=== PATIENT | female | born 1950 | race Caucasian/White ===

== ENCOUNTER 2017-09-07 18:48 | Inpatient (IN) | payer OTHER ==
[~2017-09-07] VITALS: Ht 167.6 cm; Wt 74.8 kg
[2017-09-07] MEDS ORDERED: HEPA0.5D3 SQ (19:07)
[2017-09-07] MEDS ORDERED: BUPR1FIL3 SL (19:07)
[2017-09-07] MEDS ORDERED: ONDA4TAB5 PO (19:07)
[2017-09-07] MEDS ORDERED: FLUO40CA8 PO (19:07)
[2017-09-07] MEDS ORDERED: ALPR1TAB2 PO (19:07)
--- NOTE | 2017-09-07 21:04 | NUR ---
Pt. admitted to GPS, under care of Dr. Cueva Belongs List completed
[2017-09-07 21:30] VITALS: BP 130/83
[2017-09-07] MEDS ORDERED: ACETAMINOPHEN 325 MG TABLET PO PRN (21:30)
[2017-09-07] MEDS ORDERED: MAGNESIUM HYDROXIDE 30 ML LIQUID UDC PO PRN (21:30)
--- NOTE | 2017-09-07 21:45 | NUR ---
ADMISSION NOTE: 66 Y.O. FEMALE BROUGHT TO MHU FROM ER VIA GURNEY ON A 5150 FOR DTS. ACCORDING TO THE HOLD, Pt WAS SEEN AT [facility] IN [place] DUE TO AN INTENTIONAL OVERDOSE ON 40 SEROQUEL WITH A PLAN TO KILL HERSELF. Pt REPORTS SHE CONTINUES TO HAVE THOUGHTS ABOUT WANTING TO BE AND STATES SHE DOES NOT HAVE ANY FAMILY OR FRIENDS FOR SUPPORT. SHE REPORTS HAVING A HISTORY OF 1 PRIOR SUICIDE ATTEMPT AND PSYCHIATRIC HOSPITALIZATION. DENIES CURRENT PLAN, BUT WAS TEARFUL STATING SHE IS ALONE FOR THE HOLIDAYS AND IS UNSURE WHEN SHE ELVIS ACCESS SUPPORT. PATIENT APPEARS TO REFLECT WHAT IS ON THE HOLD, RN CONCURS WITH HOLD. PATIENT RIGHTS HANDBOOK AND ADVISEMENT GIVEN. UPON FACE TO FACE EVALUATION, Pt IS A+Ox3 WITH FAIR INSIGHT INTO REASON FOR ADMISSION. DISHEVELED, UNKEMPT, AND MALODOROUS IN HOSPITAL GOWN AND PANTS, REFUSED SHOWER. Pt STATES SHE IS HERE, "BECAUSE I TOOK TOO MANY PILLS AND WANTED TO BE ". Pt STATES SHE FEELS HELPLESS AND HOPELESS, BUT DENIES BEING DEPRESSED, STATED, "I REALLY AM JUST OVER LIFE, AND I'M READY TO END IT". Pt STATES SHE HAS NO FAMILY, NO FRIENDS, AND HATES HER LIVING SITUATION (SHE RENTS A ROOM FROM AN ACQUAINTANCE). Pt ADMITTED TO AT LEAST 8 OTHER PSYCHIATRIC HOSPITALIZATIONS, AND AT LEAST 1 PRIOR SUICIDE ATTEMPT BY SLASHING HER WRISTS. Pt AGREES TO CONTRACT FOR SAFETY WHILE INSIDE THE HOSPITAL, BUT STATES SHE WILL TRY COMMIT SUICIDE AGAIN WITH A PLAN TO "TAKE THE REST OF MY MEDICATIONS" WHEN RELEASED. Pt STATES SHE "REGRETS THAT I LIVED". DENIES HI/AH/VH. Pt EXHIBITS SUPERFICIALLY BRIGHT AFFECT AND PRESSURED SPEECH, HAS POOR EYE CONTACT. Pt IS FIXATED ON AND PREOCCUPIED WITH HER XANAX AND SUBOXONE MEDICATIONS, ASKING CONSTANTLY WHEN SHE WILL BE GETTING THEM. Pt IS ANXIOUS AND SOMEWHAT RESTLESS, ATIVAN 0.5mg ADMINISTERED ORDERED WITH GOOD EFFECT. Pt IS COOPERATIVE WITH ADMISSION PROCESS AND STAFF DIRECTION. Pt EDUCATED ON UNIT RULES AND SAFETY, AND ORIENTED TO THE UNIT, Pt VERBALIZED UNDERSTANDING. DR VALENZUELA AND DR CASTORENA NOTIFIED OF ADMISSION, ORDERS RECEIVED. BELONGINGS INVENTORIED AND PLACED IN UNIT LOCKER. VS STABLE, MEDS RECONCILED.
[2017-09-07] MEDS: MAG HYDROX/AL HYDROX/SIMETH 30 ML LIQUID UDC PO PRN (21:51)
[2017-09-07] MEDS: LORAZEPAM 0.5 MG TABLET PO PRN (21:51)
[2017-09-07] MEDS ORDERED: MAG HYDROX/AL HYDROX/SIMETH 30 ML LIQUID UDC ONE (22:07)
[2017-09-07] MEDS ORDERED: LORAZEPAM 0.5 MG TABLET ONE (22:07)
[2017-09-07 23:18] LABS: *BILIRUBIN,URIN NEGATIVE (NEGATIVE); *BLOOD, URINE NEGATIVE (NEGATIVE); *COLOR,URINE STRAW (YELLOW); *KETONES,URINE NEGATIVE (NEGATIVE); *PROTEIN,URINE NEGATIVE (NEGATIVE); LEUKOCYTE ESTERASE ,URINE 2+ (NEGATIVE); NITRITE, URINE NEGATIVE (NEGATIVE); PH,URINE 7.5 (5.0-8.0); UGLUCOSE NEGATIVE (NEGATIVE)
[2017-09-07 23:19] LABS: *CLARITY,URINE HAZY (CLEAR)
[2017-09-08 00:44] LABS: RBC,URINE 0-3 /HPF (0-3)
[2017-09-08 00:45] LABS: BACTERIA,URINE FEW /HPF (NONE SEEN); WBC,URINE 20-50 /HPF (0-3)
[2017-09-08 00:47] LABS: SQUAMOUS EPITHELIAL CELL,UR FEW /HPF (NONE SEEN)
[2017-09-08] MEDS: LORAZEPAM 0.5 MG TABLET PO PRN ×3 (05:09→14:12)
[2017-09-08] MEDS ORDERED: LORAZEPAM 0.5 MG TABLET ONE (05:23)
[2017-09-08] MEDS: MAG HYDROX/AL HYDROX/SIMETH 30 ML LIQUID UDC PO PRN ×3 (05:25→21:29)
[2017-09-08] MEDS ORDERED: MAG HYDROX/AL HYDROX/SIMETH 30 ML LIQUID UDC ONE (05:41)
[2017-09-08 07:30] VITALS: BP 118/85
[2017-09-08 08:14] LABS: THYROID STIMULATING HORMONE 4.47 mIU/mL (0.358-3.740)
[2017-09-08] MEDS: NICOTINE 7 MG/24HR PATCH TD SCH (08:15)
[2017-09-08 08:17] LABS: BASOPHILS % (AUTO) 0.9 % (0.0-2.0); EOSINOPHILS # (AUTO) 0.2 K/uL (0.0-0.7); EOSINOPHILS % (AUTO) 3.5 % (0.0-7.0); HEMATOCRIT 39.7 % (31.2-41.9); HEMOGLOBIN 13.6 g/dL (10.9-14.3); LYMPHOCYTES # (AUTO) 1.3 K/uL (20.0-40.0); LYMPHOCYTES % (AUTO) 25.3 % (20.5-51.5); MEAN CORPUSCULAR HEMOGLOBIN 32.4 uug (24.7-32.8); MEAN CORPUSCULAR HGB CONC 34 g/dL (32.3-35.6); MEAN CORPUSCULAR VOLUME 94.9 fL (75.5-95.3); MONOCYTES # (AUTO) 0.4 K/uL (2.0-10.0); MONOCYTES % (AUTO) 8.4 % (0.0-11.0); NEUTROPHILS # (AUTO) 3.3 K/uL (1.8-8.9); NEUTROPHILS % (AUTO) 61.9 % (38.5-71.5); RED BLOOD CELL COUNT(AUTO) 4.19 MIL/uL (3.63-4.92); WHITE BLOOD COUNT (AUTO) 5.3 K/uL (3.8-11.8)
[2017-09-08 08:28] LABS: BILIRUBIN,TOTAL 0.3 mg/dL (0.2-1.0); CREATININE 0.9 mg/dL (0.6-1.3); PHOSPHOROUS 3.2 mg/dL (2.5-4.9); POTASSIUM 3.9 mmol/L (3.5-5.1)
[2017-09-08 09:00] LABS: PLATELET COUNT (AUTO) 277 K/uL (179-408)
[2017-09-08] MEDS ORDERED: INFLUENZA VACCINE 2017-2018 0.5 ML DISP.SYRIN IM ONE (09:00)
[2017-09-08] MEDS ORDERED: PNEUMOCOCCAL 23-VAL P-SAC VAC 0.5 ML VIAL IM ONE (09:00)
[2017-09-08] MEDS: FLUOXETINE HCL 20 MG CAPSULE PO SCH (11:46)
[2017-09-08] MEDS: QUETIAPINE FUMARATE 25 MG TABLET PO SCH ×2 (11:46→16:46)
--- NOTE | 2017-09-08 12:00 | NUR ---
Gps/Order Dispatcher Chief- Dr Avalos was in to see and talked to patient. Routine medications ordered, reviewed with patient. Immunizations ordered,administered.Patient verbalized feelings of being anxious, interacting fairly well with her roommate.Reviewed safety, encouraged to let staff know when needed assist.
--- NOTE | 2017-09-08 15:38 | NUR ---
Gps/Racing Secretary- Patient verbalized feelings of being upset, when informed Dr Avalos didnt order clonopin for her, she can have ativan 0.5 mg as ordered. Claimed she's not going to last with just ativan for her anxiety. Informed patient she had a routine seroquel ordered. She wants Dr Avalos to come back to write order for clonopin, claimed Dr Avalos told her, he will change order.Continue to monitor behavior
[2017-09-08 16:00] VITALS: BP 95/59
[2017-09-08] MEDS: SULFAMETH/TRIMETH 800/160 MG TABLET PO SCH (16:46)
--- NOTE | 2017-09-08 17:43 | NUR ---
Gps/Flanger- Informed patient she has bladder infection, and she is being started w/ bactrim tab.for 7 day, ,claimed she didnt realized she had bladder infection she denies burning in urinations.Adequate fluid intake,afebrile.
[2017-09-08] MEDS: CLONAZEPAM 0.5 MG TABLET PO PRN (18:07)
[2017-09-08 20:00] VITALS: BP 114/75
[2017-09-08] MEDS: LAMOTRIGINE 25 MG TABLET PO SCH (20:57)
[2017-09-08] MEDS: TEMAZEPAM 7.5 MG CAPSULE PO PRN (21:25)
[2017-09-09] MEDS: CLONAZEPAM 0.5 MG TABLET PO PRN ×4 (00:23→18:01)
[2017-09-09 07:30] VITALS: BP 116/68
[2017-09-09] MEDS: NICOTINE 7 MG/24HR PATCH TD SCH (08:44)
[2017-09-09] MEDS: FLUOXETINE HCL 20 MG CAPSULE PO SCH (08:44)
[2017-09-09] MEDS: SULFAMETH/TRIMETH 800/160 MG TABLET PO SCH ×2 (08:44→17:06)
--- NOTE | 2017-09-09 15:26 | NUR ---
PATIENT IS 66 Y/O FEMALE WHO PRESENT AND PLACED ON 72 HR HOLD DUE TO INTENTIONAL OVERDOSE AND SUICIDAL IDEATION ORAL INTAKE IS GOOD, EATING 100% OF MEALS ANTHROPOMETRY:CURRENT WEIGHT IS 165LB,BMI 26.6-OVERWEIGHT,PHYSICAL ASSESSMENT REPORT SUGGEST NO OVERT MALNUTRITION LABS:CHOLESTEROL-205(H),LDL-133(H) MEDICATION:LIPITOR, NO NUTRITION DIAGNOSIS AT THIS TIME MONITOR;WEIGHT,NEW LABS,ORAL INTAKE Addendum: 09/11/17 at [address] Amended: Links added.
[2017-09-09 16:36] VITALS: BP 102/68
[2017-09-09 20:10] VITALS: BP 116/68
[2017-09-09] MEDS: ATORVASTATIN 20 MG TABLET PO SCH (21:49)
[2017-09-09] MEDS: LAMOTRIGINE 25 MG TABLET PO SCH (21:49)
[2017-09-09] MEDS: TEMAZEPAM 7.5 MG CAPSULE PO PRN (21:53)
[2017-09-10] MEDS: CLONAZEPAM 0.5 MG TABLET PO PRN ×5 (00:19→17:03)
[2017-09-10 07:30] VITALS: BP 124/64
[2017-09-10] MEDS: NICOTINE 7 MG/24HR PATCH TD SCH (08:43)
[2017-09-10] MEDS: FLUOXETINE HCL 20 MG CAPSULE PO SCH (08:43)
[2017-09-10] MEDS: SULFAMETH/TRIMETH 800/160 MG TABLET PO SCH ×2 (08:43→17:03)
--- NOTE | 2017-09-10 10:32 | NUR ---
GPS: Nursing Notes: Missing Denture: Patient was sleeping when she waked up stated that her upper denture was missing, charge nurse and staff helped her to look for it, but they cannot find it, Paula GRIMM stated that she told her that it is her fault that she lost her denture, continue on the look out for her denture.
--- NOTE | 2017-09-10 12:11 | NUR ---
Initial DC Note: Patient currently resides in an apartment [address] [place] [address] [address], [place] [address] [[phone]] with her roommate and cat. Patient stated that she wants to go back home. SW will follow up with MD and patient to discuss most appropriate discharge plans. SW will form a safe and proper discharge.
[2017-09-10 16:56] VITALS: BP 102/66
[2017-09-10] MEDS: LAMOTRIGINE 25 MG TABLET PO SCH (17:03)
--- NOTE | 2017-09-10 17:23 | NUR ---
GPS: Nursing Notes: Missing Upper Denture: [employer] typing pool supervisor was also informed of the incident, patient is A/Ox4, self care, continue to monitor patient, continue with treatment plan.
[2017-09-10] MEDS: ONDANSETRON HCL 4 MG TABLET PO PRN (18:56)
[2017-09-10 20:00] VITALS: BP 114/80
[2017-09-10] MEDS: ATORVASTATIN 20 MG TABLET PO SCH (20:56)
--- NOTE | 2017-09-10 21:05 | NUR ---
PATIENT RECEIVED IN ACTIVITIES ROOM WATCHING T.V. INTERACTING WITH STAFF AND PEERS. PATIENT ALERT/ORIENTED X3. FLAT AFFECT, CALM AND PLEASANT UPON APPROACH. PATIENT IN NO APPARENT DISTRESS, WILL CONTINUE TO MONITOR. PATIENT COMPLAINT WITH MEDICATION. NO AGGRESSIVE OR COMBATIVE BEHAVIOR NOTED. PATIENT DENIES SI, WILL CONTINUE TO MONITOR. PATIENT ENCOURAGED TO EXPRESS FEELINGS AND CONCERNS. Addendum: 09/10/17 at 2133 by CLINTON SILVA RN PATIENT REFUSED 2100 MEDICATION (LIPITOR) " I DON'T HAVE A CHOLESTEROL PROBLEM."
[2017-09-10] MEDS: TEMAZEPAM 7.5 MG CAPSULE PO PRN (23:20)
[2017-09-11] MEDS: CLONAZEPAM 0.5 MG TABLET PO PRN ×3 (02:07→10:40)
[2017-09-11 07:30] VITALS: BP 116/80
[2017-09-11] MEDS: ONDANSETRON HCL 4 MG TABLET PO PRN (08:35)
[2017-09-11] MEDS: SULFAMETH/TRIMETH 800/160 MG TABLET PO SCH (08:35)
[2017-09-11] MEDS: LAMOTRIGINE 25 MG TABLET PO SCH (08:35)
[2017-09-11] MEDS: FLUOXETINE HCL 20 MG CAPSULE PO SCH (08:35)
[2017-09-11] MEDS: NICOTINE 7 MG/24HR PATCH TD SCH (08:37)
--- NOTE | 2017-09-11 14:15 | NUR ---
GPS: Nursing Notes: Discharge Notes: Patient is awake and responding to her name, A/Ox4, cooperative with nursing care, compliant with her medications, denies any SI/HI, denies any AH/VH, denies any pain or discomfort at this time, denies any SOB, discharge home, self care at [address], [place] [address] via Lyft at 14:15pm. TARAN spoke with Shea at [employer] ([phone]) to confirm transportation plans. Patient is aware and agreeable to discharge plans. Patient will follow up with her psychiatrist Dr. Aguila Lyons [[address] [place], [address]; ]. Patient was provided referrals for internists including [facility] [[address] [place] [address]; ] and [facility] [[address] [place] [address]; [address] [place] [address]]. Patient was also provided a referral for the National Suicide Prevention Lifeline and smoking cessation referrals for [place] [employer] [facility] and [employer] 172-702-7419.
--- NOTE | 2017-09-11 14:45 | NUR ---
DC note:Patient will be discharged home [patients address; phone] via Lyft at 2:45pm. TARAN spoke with Shea at [employer] ([phone]) to confirm transportation plans. Patient is aware and agreeable to discharge plans. Patient will follow up with her psychiatrist Dr. Aguila Lyons [[address] [place], [address]; ]. Patient was provided referrals for internists including [facility] [[address] [place] [address]; ] and [facility] [[address] [place] [address]; [address] [place] [address]]. Patient was also provided a referral for the National Suicide Prevention Lifeline and smoking cessation referrals for [employer] [facility] and [employer] [phone]. Addendum: 09/11/17 at 1457 by MYRA CHIRINOS Patient's Home: [facility] [address], [place] [address]; . [facility]: Phone number
--- NOTE | 2017-09-11 14:56 | NUR ---
Firearms Reporting: TARAN submitted Mental health Report to [facility] on 09/11.
== END 2017-09-11 14:15 | disposition home or self-care (01) | DRG 885 ==
LOC: ER 18:49 → GPS 20:57
PROVIDERS: ADMIT Psychiatry & Neurology Psychosomatic Medicine; ATTEND Internal Medicine
DX: F31.30 Bipolar disorder, current episode depressed, mild or moderate severity, unspecified (principal); N18.9 Chronic kidney disease, unspecified; M32.9 Systemic lupus erythematosus, unspecified; N39.0 Urinary tract infection, site not specified; E78.5 Hyperlipidemia, unspecified; I25.10 Atherosclerotic heart disease of native coronary artery without angina pectoris; I12.9 Hypertensive chronic kidney disease with stage 1 through stage 4 chronic kidney disease, or unspecified chronic kidney disease; Z85.828 Personal history of other malignant neoplasm of skin; Z79.899 Other long term (current) drug therapy; Z91.5 Personal history of self-harm; Z88.0 Allergy status to penicillin; F10.21 Alcohol dependence, in remission
CPT/HCPCS: 36415; 71010; 82306; 83735; 84100; 84443; 85025; 87086; 90686; 90732; 93005; A4663; A9150; Q0162